=== PATIENT | female | born 1985 | race Two or more races ===

== ENCOUNTER 2016-09-21 10:16 | Outpatient (CLI) | payer MEDICAID | END 2016-09-21 10:17 | disposition home or self-care (01) | DX: Z11.3 Encounter for screening for infections with a predominantly sexual mode of transmission (principal) ==

== ENCOUNTER 2017-10-13 08:00 | Outpatient (CLI) | payer MEDICAID | END 2017-10-13 23:59 | disposition home or self-care (01) | LOC: LAB.R 08:00 | PROVIDERS: ATTEND Obstetrics & Gynecology | DX: Z11.3 Encounter for screening for infections with a predominantly sexual mode of transmission (principal) | CPT/HCPCS: 87491; 87591 ==